=== PATIENT | female | born 1985 | race American Indian/Alaskan Native ===

== ENCOUNTER 2016-12-17 21:39 | Emergency (ER) | payer OTHER ==
[2016-12-17 21:47] VITALS: BP 114/75
[2016-12-17 22:12] LABS: Basophils % (Auto) 1.1 % (0.0-1.8); Eosinophils % (Auto) 5.8 % (0.0-4.3); Hematocrit 37.1 % (30.3-42.9); Hemoglobin 12.2 gm/dl (10.1-14.3); Mean Corpuscular HGB Conc 33 % (30-34); Mean Corpuscular Hemoglobin 28 pg (28-32); Mean Corpuscular Volume 85 fl (79-97); Platelet Count 219 K/mm3 (140-440); Red Blood Count 4.38 M/mm3 (3.65-5.03); Red Cell Distribution Width 14.3 % (13.2-15.2); White Blood Count 5.2 K/mm3 (4.5-11.0)
[2016-12-17 22:29] LABS: Alanine Aminotransferase 9 units/L (7-56); Albumin 4.3 g/dL (3.9-5); Albumin/Globulin Ratio 1.4 %; Alkaline Phosphatase 37 units/L (35-129); Anion Gap 18 mmol/L; BUN/Creatinine Ratio 15; Blood Urea Nitrogen 9 mg/dL (7-17); Calcium 8.8 mg/dL (8.4-10.2); Carbon Dioxide 22 mmol/L (22-30); Glucose 88 mg/dL (65-100); Lipase 32 units/L (13-60); Potassium 3.7 mmol/L (3.6-5.0); Sodium 139 mmol/L (137-145); Total Protein 7.4 g/dL (6.3-8.2)
[2016-12-17 23:00] LABS: Bilirubin,Urine NEG (Negative); Blood,Urine NEG (Negative); Ketones,Urine NEG (Negative); Leukocyte Esterase,Urine NEG (Negative); Mucus,Urine FEW /HPF; Nitrite,Urine NEG (Negative); Protein,Urine <15 mg/dL mg/dL (Negative)
== END 2016-12-18 00:45 | disposition other institution (70) ==
LOC: ED 21:39
DX: M54.9 Dorsalgia, unspecified (principal); Z53.21 Procedure and treatment not carried out due to patient leaving prior to being seen by health care provider
CPT/HCPCS: 36415; 80053; 81001; 81025; 83690; 85025

== ENCOUNTER 2019-08-24 09:09 | Emergency (ER) | payer SELFPAY ==
[2019-08-24 09:16] VITALS: BP 106/71
[2019-08-24] MEDS ORDERED: ONDANSETRON 4 MG/2 ML INJ IM ONE (09:35)
[2019-08-24] MEDS ORDERED: MORPHINE 4 MG/1 ML INJ IM ONE (09:35)
--- NOTE | 2019-08-24 09:38 | Emergency Department Report ---
ED General Adult HPI - General Chief complaint: Urogenital-Female Stated complaint: GROIN PAIN Time Seen by Provider: 08/24/19 09:31 Source: patient Mode of arrival: Ambulatory Limitations: No Limitations - History of Present Illness Initial comments: Patient is 33 years old female with no significant past medical history. Patient presented to the ER stating that she is having suprapubic pain for the last few days. Patient had a Gardner catheter placed in on 08/20 for urine retention. Patient stated that she has an appointment with her urologist today at 12 PM and would like to keep her appointment. Patient denied any fever or chills. No nausea or vomiting. - Related Data Previous Rx's Medication Instructions Recorded Last Taken Type Famotidine [Pepcid] 20 mg PO BID #30 tablet 08/09/15 Unknown Rx HYDROcodone/APAP 7.5-325 [[place] 1 each PO Q8HR PRN #15 tablet 08/09/15 Unknown Rx 7.5/325] Ibuprofen [Motrin 600 MG tab] 600 mg PO Q8H PRN #20 tablet 08/21/19 Unknown Rx Nitrofurantoin [place]/M-Cryst 100 mg PO Q12HR #14 capsule 08/21/19 Unknown Rx [Macrobid CAP] Ondansetron [Zofran Odt] 4 mg PO Q8HR #10 tab.rapdis 08/21/19 Unknown Rx Allergies Allergy/AdvReac Type Severity Reaction Status Date / Time No Known Allergies Allergy Verified 08/06/14 13:18 ED Review of Systems ROS: Stated complaint: GROIN PAIN Other details as noted in HPI Comment: All other systems reviewed and negative Constitutional: denies: chills, fever Respiratory: denies: cough, shortness of breath, SOB with exertion Cardiovascular: denies: chest pain, palpitations Gastrointestinal: abdominal pain. denies: nausea, vomiting, diarrhea, constipation, hematemesis, melena Genitourinary: dysuria ED Past Medical Hx - Past Medical History Previous Medical History?: Yes Hx Headaches / Migraines: Yes - Surgical History Past Surgical History?: Yes Additional Surgical History: neck surgery @ age 4. LAPROSCOPY - Social History Smoking Status: Never Smoker Substance Use Type: None - Medications Home Medications: Home Medications Medication Instructions Recorded Confirmed Last Taken Type Famotidine [Pepcid] 20 mg PO BID #30 tablet 08/09/15 Unknown Rx HYDROcodone/APAP 7.5-325 [[place] 1 each PO Q8HR PRN #15 tablet 08/09/15 Unknown Rx 7.5/325] Ibuprofen [Motrin 600 MG tab] 600 mg PO Q8H PRN #20 tablet 08/21/19 Unknown Rx Nitrofurantoin [place]/M-Cryst 100 mg PO Q12HR #14 capsule 08/21/19 Unknown Rx [Macrobid CAP] Ondansetron [Zofran Odt] 4 mg PO Q8HR #10 tab.rapdis 08/21/19 Unknown Rx ED Physical Exam - General Limitations: No Limitations General appearance: alert, in no apparent distress - Head Head exam: Present: atraumatic, normocephalic, normal inspection - Eye Eye exam: Present: normal appearance - ENT ENT exam: Present: normal exam, normal orophraynx, mucous membranes moist - Neck Neck exam: Present: normal inspection. Absent: tenderness, meningismus - Respiratory Respiratory exam: Present: normal lung sounds bilaterally - Cardiovascular Cardiovascular Exam: Present: regular rate, normal rhythm, normal heart sounds - GI/Abdominal GI/Abdominal exam: Present: soft, normal bowel sounds. Absent: distended, tenderness, guarding, rebound, rigid, organomegaly, mass, bruit, pulsatile mass, hernia - Extremities Exam Extremities exam: Present: normal inspection, full ROM, normal capillary refill. Absent: tenderness, pedal edema, joint swelling, calf tenderness - Back Exam Back exam: Present: normal inspection, full ROM. Absent: CVA tenderness (R), CVA tenderness (L) - Neurological Exam Neurological exam: Present: alert, oriented X3, CN II-XII intact, normal gait, reflexes normal. Absent: motor sensory deficit - Skin Skin exam: Present: warm, intact, normal color ED Course Vital Signs 08/24/19 09:15 Temperature 97.7 F Pulse Rate 112 H Respiratory 16 Rate Blood Pressure 106/71 [Right] ED Medical Decision Making - Medical Decision Making Patient is 33 years old female with no significant past medical history. Patient presented to the ER stating that she is having suprapubic pain for the last few days. Patient had a Gardner catheter placed in on 08/20 for urine retention. Patient stated that she has an appointment with her urologist today at 12 PM and would like to keep her appointment. Patient denied any fever or chills. No nausea or vomiting Gardner catheter adjusted and flushed by the nurse with good flow. Patient received morphine for pain. Patient stated that she is feeling much better. Urine is slightly positive for UTI, patient advised to continue her Macrobid and also advised to follow-up with her urologist appointment in 1 hour. Critical care attestation.: If time is entered above; I have spent that time in minutes in the direct care of this critically ill patient, excluding procedure time. ED Disposition Clinical Impression: Acute urinary retention, Acute cystitis Disposition: - TO HOME OR SELFCARE Is pt being admited?: No Condition: Stable Instructions: Acute Urinary Retention in Women (ED) Referrals: PRIMARY CARE, [Primary Care Provider] - 3-5 Days
[2019-08-24 10:23] LABS: Bacteria,Urine 1+ /HPF (Negative); Bilirubin,Urine NEG (Negative); Blood,Urine NEG (Negative); Color,Urine Yellow (Yellow); Hyaline Casts,Urine 1 /LPF; Mucus,Urine 3+ /HPF; Protein,Urine <15 mg/dL mg/dL (Negative); Urobilinogen,Urine < 2.0 mg/dL (<2.0)
[2019-08-24 10:25] LABS: HCG Qualitative,Urine Negative (Negative)
== END 2019-08-24 11:16 | disposition home or self-care (01) ==
LOC: ED 09:09
DX: N30.00 Acute cystitis without hematuria (principal); R33.8 Other retention of urine; G43.909 Migraine, unspecified, not intractable, without status migrainosus; Z79.899 Other long term (current) drug therapy; Z98.890 Other specified postprocedural states
CPT/HCPCS: 51702; 81001; 81025; 87086; 96372; 99283; J2270; J2405

== ENCOUNTER 2019-08-24 14:29 | Emergency (ER) | payer SELFPAY ==
[2019-08-24 16:00] VITALS: BP 136/78
[2019-08-24] MEDS ORDERED: LIDOCAINE 2% UROJECT 10 ML JELLY UR ONE (17:06)
[2019-08-24] MEDS ORDERED: HYDROcodone/ACETAMINOPHEN 5-325 MG TAB PO ONE (17:07)
--- NOTE | 2019-08-24 17:08 | Emergency Department Report ---
HPI - General Chief Complaint: Urogenital-Female Time Seen by Provider: 08/24/19 16:52 - HPI HPI: Room 34 The patient is a 33-year-old female present with a chief complaint of urethral pain. The patient came to this ED 08/21/2019 for urinary retention. Patient had a placement of a Gardner catheter and had instant relief. Patient discharged home on antibiotics after being found to have a UTI. Patient was given referral to urology and had an appointment today. Patient came to this ED earlier in the day for pain at the Gardner insertion site. The Gardner catheter was flushed by nursing and found to be working appropriately. Patient was sent to the urologist to keep her appointment but was not seen and sent back to the ED. Patient denies nausea vomiting or fever. The patient states she was brought to the ED by another person and is not driving. The patient states she is been compliant with her antibiotic ED Past Medical Hx - Past Medical History Previous Medical History?: Yes Hx Headaches / Migraines: Yes - Surgical History Additional Surgical History: neck surgery @ age 4. LAPROSCOPY - Family History Family history: no significant - Social History Smoking Status: Never Smoker Substance Use Type: None (Denies illicit drug use), Alcohol (Occasional) - Medications Home Medications: Home Medications Medication Instructions Recorded Confirmed Last Taken Type Famotidine [Pepcid] 20 mg PO BID #30 tablet 08/09/15 Unknown Rx HYDROcodone/APAP 7.5-325 [[place] 1 each PO Q8HR PRN #15 tablet 08/09/15 Unknown Rx 7.5/325] Ibuprofen [Motrin 600 MG tab] 600 mg PO Q8H PRN #20 tablet 08/21/19 Unknown Rx Nitrofurantoin [place]/M-Cryst 100 mg PO Q12HR #14 capsule 08/21/19 Unknown Rx [Macrobid CAP] Ondansetron [Zofran Odt] 4 mg PO Q8HR #10 tab.rapdis 08/21/19 Unknown Rx HYDROcodone/APAP 5-325 [[place] 1 - 2 each PO Q6HR PRN #10 tablet 08/24/19 Unknown Rx 5/325] Phenazopyridine [Pyridium] 200 mg PO TID #6 tab 08/24/19 Unknown Rx ED Review of Systems ROS: Stated complaint: CATH PROBLEMS Other details as noted in HPI Constitutional: denies: fever Respiratory: no symptoms reported Endocrine: no symptoms reported Gastrointestinal: denies: nausea, vomiting Physical Exam - Physical Exam Vital Signs: Vital Signs 08/24/19 14:40 Temperature 98.3 F Pulse Rate 114 H Respiratory 18 Rate Blood Pressure 136/78 O2 Sat by Pulse 100 Oximetry Physical Exam: GENERAL: The patient is well-developed well-nourished female lying on stretcher not appearing to be in acute distress. [] HEENT: Normocephalic. Atraumatic. Extraocular motions are intact. Patient has moist mucous membranes. NECK: Supple. Trachea midline CHEST/LUNGS: Clear to auscultation. There is no respiratory distress noted. HEART/CARDIOVASCULAR: Regular. There is no tachycardia. There is no gallop rub or murmur. ABDOMEN: Abdomen is soft, with mild suprapubic discomfort to palpation. There is no rebound or guarding. Patient has normal bowel sounds. There is no abdominal distention. SKIN: There is no rash. There is no edema. There is no diaphoresis. NEURO: The patient is awake, alert, and oriented. The patient is cooperative. The patient has normal speech MUSCULOSKELETAL: There is no CVA tenderness. There is no evidence of acute injury. ED Course Vital Signs 08/24/19 14:40 Temperature 98.3 F Pulse Rate 114 H Respiratory 18 Rate Blood Pressure 136/78 O2 Sat by Pulse 100 Oximetry ED Medical Decision Making - Differential Diagnosis Gardner discomfort, UTI Critical care attestation.: If time is entered above; I have spent that time in minutes in the direct care of this critically ill patient, excluding procedure time. ED Disposition Clinical Impression: Encounter for assessment of Gardner catheter, UTI (urinary tract infection) Disposition: - TO HOME OR SELFCARE Is pt being admited?: No Does the pt Need Aspirin: No Condition: Stable Instructions: Gardner Catheter Placement and Care (ED) Additional Instructions: Return to the emergency department should you develop worsening symptoms, inability to tolerate food or liquids, high fever or any other concerns Prescriptions: HYDROcodone/APAP 5-325 [[place] 5/325] 1 - 2 each PO Q6HR PRN #10 tablet PRN Reason: Pain Phenazopyridine [Pyridium] 200 mg PO TID #6 tab Referrals: KEZIA AHN MD [Staff Physician] - [facility] (Dr. Ahn is a urologist. Please follow-up with him for further evaluation) Time of Disposition: 17:17
== END 2019-08-24 18:02 | disposition home or self-care (01) ==
LOC: ED 14:29
DX: N39.0 Urinary tract infection, site not specified (principal); G43.909 Migraine, unspecified, not intractable, without status migrainosus; Z79.899 Other long term (current) drug therapy; Z76.89 Persons encountering health services in other specified circumstances; Z98.890 Other specified postprocedural states
CPT/HCPCS: 99282

== ENCOUNTER 2019-08-26 16:36 | Inpatient (IN) | payer SELFPAY ==
--- NOTE | 2019-08-26 17:07 | Emergency Department Report ---
ED Abdominal Pain HPI - General Chief Complaint: Abdominal Pain Stated Complaint: ABDOMINAL PAIN PUI?: No Time Seen by Provider: 08/26/19 17:01 Source: patient, EMS Mode of arrival: Stretcher Limitations: No Limitations - History of Present Illness Initial Comments: Patient is a 33-year-old female that presents emergency room with complaints of not being able to urinate. Patient states she has been seen here multiple times for UTI and abdominal pain. Patient states that her pain is a 10 out of 10 and is suprapubic. Patient states the pain is worse with movement and better with rest. Patient states that she was given Pyridium and hydrocodone and antibiotics. Patient states she was not able to afford the antibiotic and only purchased the Pyridium and hydrocodone. Patient did not have a Gardner at this time upon arrival. Patient states it was removed as an outpatient. Patient states she has not urinated for approximately 8 hours. MD Complaint: abdominal pain -: Sudden Location: suprapubic Severity: severe Severity scale (0 -10): 10 Quality: stabbing Consistency: constant Associated Symptoms: denies: nausea, vomiting, diarrhea, fever, chills, constipation, dysuria, hematemesis, hematochezia, melena, hematuria, anorexia, syncope - Related Data Previous Rx's Medication Instructions Recorded Last Taken Type Famotidine [Pepcid] 20 mg PO BID #30 tablet 08/09/15 Unknown Rx HYDROcodone/APAP 7.5-325 [[place] 1 each PO Q8HR PRN #15 tablet 08/09/15 Unknown Rx 7.5/325] Ibuprofen [Motrin 600 MG tab] 600 mg PO Q8H PRN #20 tablet 08/21/19 Unknown Rx Nitrofurantoin [place]/M-Cryst 100 mg PO Q12HR #14 capsule 08/21/19 Unknown Rx [Macrobid CAP] Ondansetron [Zofran Odt] 4 mg PO Q8HR #10 tab.rapdis 08/21/19 Unknown Rx HYDROcodone/APAP 5-325 [[place] 1 - 2 each PO Q6HR PRN #10 tablet 08/24/19 Unknown Rx 5/325] Phenazopyridine [Pyridium] 200 mg PO TID #6 tab 08/24/19 Unknown Rx Allergies Allergy/AdvReac Type Severity Reaction Status Date / Time No Known Allergies Allergy Verified 08/06/14 13:18 ED Review of Systems ROS: Stated complaint: ABDOMINAL PAIN Other details as noted in HPI Constitutional: denies: chills, fever Eyes: denies: eye pain, eye discharge, vision change ENT: denies: ear pain, throat pain Respiratory: denies: cough, shortness of breath, wheezing Cardiovascular: denies: chest pain, palpitations Endocrine: no symptoms reported Gastrointestinal: as per HPI, abdominal pain. denies: nausea, diarrhea Genitourinary: as per HPI, other (Urinary retention). denies: urgency, dysuria, discharge Musculoskeletal: denies: back pain, joint swelling, arthralgia Skin: denies: rash, lesions Neurological: denies: headache, weakness, paresthesias Psychiatric: denies: anxiety, depression Hematological/Lymphatic: denies: easy bleeding, easy bruising ED Past Medical Hx - Past Medical History Previous Medical History?: Yes Hx Headaches / Migraines: Yes - Surgical History Past Surgical History?: Yes Additional Surgical History: neck surgery @ age 4. LAPROSCOPY - Family History Family history: no significant - Social History Smoking Status: Never Smoker Substance Use Type: None - Medications Home Medications: Home Medications Medication Instructions Recorded Confirmed Last Taken Type Famotidine [Pepcid] 20 mg PO BID #30 tablet 08/09/15 Unknown Rx HYDROcodone/APAP 7.5-325 [[place] 1 each PO Q8HR PRN #15 tablet 08/09/15 Unknown Rx 7.5/325] Ibuprofen [Motrin 600 MG tab] 600 mg PO Q8H PRN #20 tablet 08/21/19 Unknown Rx Nitrofurantoin [place]/M-Cryst 100 mg PO Q12HR #14 capsule 08/21/19 Unknown Rx [Macrobid CAP] Ondansetron [Zofran Odt] 4 mg PO Q8HR #10 tab.rapdis 08/21/19 Unknown Rx HYDROcodone/APAP 5-325 [[place] 1 - 2 each PO Q6HR PRN #10 tablet 08/24/19 Unknown Rx 5/325] Phenazopyridine [Pyridium] 200 mg PO TID #6 tab 08/24/19 Unknown Rx ED Physical Exam - General Limitations: No Limitations General appearance: alert, in no apparent distress - Head Head exam: Present: atraumatic, normocephalic - Eye Eye exam: Present: normal appearance - ENT ENT exam: Present: mucous membranes moist - Neck Neck exam: Present: normal inspection - Respiratory Respiratory exam: Present: normal lung sounds bilaterally. Absent: respiratory distress - Cardiovascular Cardiovascular Exam: Present: regular rate, normal rhythm. Absent: systolic murmur, diastolic murmur, rubs, gallop - GI/Abdominal GI/Abdominal exam: Present: soft, tenderness (Suprapubic tenderness), normal bowel sounds - Rectal Rectal exam: Present: normal inspection, normal rectal tone - External exam: Present: normal external exam Speculum exam: Present: erythema, vaginal discharge, cervical discharge Bi-manual exam: Present: cervical motion tendernes, uterine tenderness - Extremities Exam Extremities exam: Present: normal inspection - Back Exam Back exam: Present: normal inspection - Neurological Exam Neurological exam: Present: alert, oriented X3 - Psychiatric Psychiatric exam: Present: normal affect, normal mood - Skin Skin exam: Present: warm, dry, intact, normal color. Absent: rash ED Course Vital Signs 08/26/19 08/26/19 08/26/19 16:56 17:06 17:35 Temperature 98.8 F Pulse Rate 115 H 95 H Respiratory 18 16 Rate Blood Pressure 130/90 105/65 [Left] O2 Sat by Pulse 100 99 Oximetry 08/26/19 08/27/19 23:35 01:35 Temperature 97.8 F Pulse Rate 99 H 100 H Respiratory 18 18 Rate Blood Pressure 112/72 110/66 [Left] O2 Sat by Pulse 99 97 Oximetry - Reevaluation(s) Reevaluation #1: Initial evaluation done. Patient had a Gardner placed by the nurse and her sympto ms are improving but she is still having suprapubic pain. Patient is crying. 08/26/19 17:11 Reevaluation #2: Patient states her pain is better. Patient's Gardner is still in place. Patient will have pelvic exam. Patient agrees to pelvic exam. 08/26/19 23:22 Reevaluation #3: Pelvic exam done with Amber Teran in the room. Pelvic exam shows cervical motion tenderness. [employer] will be consulted. 08/26/19 23:58 - Consultations Consultation #1: [employer] paged 08/26/19 23:[address] Mejia, CINDER PITMAN. wants the patient to be admitted to the mother-baby and be started on clindamycin 603 times a day IV, doxycycline 100 mg IV twice daily and ceftriaxone 2 g IV every 24 hours. 08/27/19 00:44 ED Medical Decision Making - Lab Data Result diagrams: 08/26/19 19:03 08/26/19 19:03 - Radiology Data Radiology results: report reviewed CT ABDOMEN AND PELVIS WITHOUT IV CONTRAST INDICATION: Pt complains of dysuria and suprapubic abd pain. Hx of U.T.I.'s. COMPARISON: None available. TECHNIQUE: All CT scans at this facility use dose modulation, automated exposure control, iterative reconstruction or weight based dosing, when appropriate, to reduce radiation dose to as low as reasonably achievable. FINDINGS: Lung Bases: No significant abnormality. Skeletal System: No acute abnormality. ABDOMEN: Liver: No significant abnormality. Gallbladder: There are a few tiny stones in the gallbladder. The gallbladder is otherwise unremarkable. Bile Ducts: No significant abnormality. Pancreas: No significant abnormality. Spleen: No significant abnormality. Adrenals: No significant abnormality. Right Kidney: No significant abnormality. Left Kidney: No significant abnormality. Upper GI tract: No significant abnormality. Lymph Nodes: No significant adenopathy. Aorta: No significant abnormality. Additional Findings: No significant abnormality. PELVIS: Colon: No acute abnormality. Urinary Bladder and Distal Ureters: Gas in the bladder may be related to Gardner catheter placement. There is mild bladder wall thickening and perivesical stranding. Appendix: No significant abnormality. Lymph Nodes: No significant adenopathy. Additional Findings: There is a low density collection between the bladder and the vagina. This measures 4.2 x 4.4 cm on axial series 2 image 157 and extends craniocaudally for approximately 5 cm on sagittal image 77. There is trace free fluid in the pelvis. IMPRESSION: 1. Low density collection between the vagina and bladder/urethra, measurements as above. This is nonspecific but could be a urethral diverticulum or other congenital cyst. I cannot exclude infection within this. Urologic/gynecologic consultation should be considered. 2. Bladder wall thickening is suggestive of cystitis. Gas in the bladder lumen may be related to catheter placement. 3. Minimal cholelithiasis. - Medical Decision Making Patient is a 33-year-old female that presents emergency room with complaints of lower abdominal pain, urinary retention and nausea and vomiting. Patient had a Gardner placed immediately upon arrival. Patient has had a Gardner multiple times over the past few weeks. Patient was prescribed Macrobid for UTI but did not start it. Patient also given Pyridium and [place] and the patient was taking this. After the Gardner was placed, the patient had large volume output of urine. Patient also initially had a decrease in her pain. Patient given Dilaudid for her pain. Patient initially was given Rocephin 2 g for a UTI. Patient CT was done. Patient CT shows a pelvic density and free fluid and findings consistent with acute cystitis. Patient had a pelvic exam after the CT results came back. Patient's pelvic exam shows cervical motion tenderness and copious amounts of vaginal and cervical discharge. I then consulted CINDER PITMAN and CINDER PITMAN recommend admission to mother-baby and multiple antibiotics to cover PID. Patient placed on Rocephin, doxy and Clinda and given fluids of normal saline. Patient also placed n.p.o. for possible intervention in the morning. Patient admitted to mother-baby. - Differential Diagnosis UTI, acute cystitis, gastroenteritis, kidney stone, bladder stone Critical Care Time: Yes Critical care time in (mins) excluding proc time.: 35 Critical care attestation.: If time is entered above; I have spent that time in minutes in the direct care of this critically ill patient, excluding procedure time. Critical Care Time: 35 minutes ED Disposition Clinical Impression: Acute urinary retention, PID (acute pelvic inflammatory disease), Vaginal discharge, Free fluid in pelvis UTI (urinary tract infection) Qualifiers: Urinary tract infection type: acute cystitis Hematuria presence: with hematuria Qualified Code(s): N30.01 - Acute cystitis with hematuria Abdominal pain Qualifiers: Abdominal location: lower abdomen, unspecified Qualified Code(s): R10.30 - Lower abdominal pain, unspecified Disposition: OP ADMIT IP TO THIS HOSP Is pt being admited?: Yes Does the pt Need Aspirin: No Condition: Critical Time of Disposition: 00:45
[2019-08-26 17:51] LABS: Bilirubin,Urine NEG (Negative); Blood,Urine NEG (Negative); Color,Urine Amber (Yellow); Protein,Urine <15 mg/dL mg/dL (Negative)
[2019-08-26 19:29] LABS: Hematocrit 38.6 % (30.3-42.9); Hemoglobin 12.2 gm/dl (10.1-14.3); Mean Corpuscular HGB Conc 32 % (30-34); Mean Corpuscular Volume 88 fl (79-97); Platelet Count 321 K/mm3 (140-440); Red Blood Count 4.38 M/mm3 (3.65-5.03); Red Cell Distribution Width 13.8 % (13.2-15.2)
[2019-08-26 19:37] LABS: Alanine Aminotransferase 8 units/L (7-56); Albumin 4.3 g/dL (3.9-5); BUN/Creatinine Ratio 10; Blood Urea Nitrogen 6 mg/dL (7-17); Calcium 9.5 mg/dL (8.4-10.2); Hemolysis Index 80
[2019-08-26] MEDS ORDERED: cefTRIAXone/NS 2 GM/100 ML 2 GM/100 ML BAG IV ONE (21:34)
[2019-08-26] MEDS ORDERED: HYDROmorphone 1 MG/1 ML INJ IV ONE (21:34)
[2019-08-26] MEDS ORDERED: NS IV ONE (21:47)
[2019-08-26] MEDS ORDERED: CEFTRIAXONE IV ONE (21:47)
[2019-08-26 22:13] LABS: HCG Qualitative,Urine Negative (Negative)
--- NOTE | 2019-08-26 23:01 | Cat Scan Report ---
CT ABDOMEN AND PELVIS WITHOUT IV CONTRAST INDICATION: Pt complains of dysuria and suprapubic abd pain. Hx of U.T.I.'s. COMPARISON: None available. TECHNIQUE: All CT scans at this facility use dose modulation, automated exposure control, iterative reconstructi on or weight based dosing, when appropriate, to reduce radiation dose to as low as reasonably achieva ble. FINDINGS: Lung Bases: No significant abnormality. Skeletal System: No acute abnormality. ABDOMEN: Liver: No significant abnormality. Gallbladder: There are a few tiny stones in the gallbladder. The gallbladder is otherwise unremarkabl e. Bile Ducts: No significant abnormality. Pancreas: No significant abnormality. Spleen: No significant abnormality. Adrenals: No significant abnormality. Right Kidney: No significant abnormality. Left Kidney: No significant abnormality. Upper GI tract: No significant abnormality. Lymph Nodes: No significant adenopathy. Aorta: No significant abnormality. Additional Findings: No significant abnormality. PELVIS: Colon: No acute abnormality. Urinary Bladder and Distal Ureters: Gas in the bladder may be related to Gardner catheter placement. Th ere is mild bladder wall thickening and perivesical stranding. Appendix: No significant abnormality. Lymph Nodes: No significant adenopathy. Additional Findings: There is a low density collection between the bladder and the vagina. This measu res 4.2 x 4.4 cm on axial series 2 image 157 and extends craniocaudally for approximately 5 cm on sag ittal image 77. There is trace free fluid in the pelvis. IMPRESSION: 1. Low density collection between the vagina and bladder/urethra, measurements as above. This is non specific but could be a urethral diverticulum or other congenital cyst. I cannot exclude infection wi thin this. Urologic/gynecologic consultation should be considered. 2. Bladder wall thickening is suggestive of cystitis. Gas in the bladder lumen may be related to cat heter placement. 3. Minimal cholelithiasis. Signer Name: Isauro Black MD Signed: 08/26/2019 10:57 PM Workstation Name: [id number]
[2019-08-27] MEDS ORDERED: DOXYCYCLINE HYCLATE 100 MG in SODIUM CHLORIDE 0.9% 250ML 250 ML IV ONE (00:42)
[2019-08-27] MEDS ORDERED: CLINDAMYCIN 600 MG/50 mL 600 MG/50 ML BAG IV ONE ×2 (00:42→01:25)
[2019-08-27] MEDS ORDERED: SODIUM CHLORIDE 0.9% 1000 ML 1,000 ML IV ONE ×2 (00:43→00:50)
[2019-08-27] MEDS ORDERED: HYDROmorphone 1 MG/1 ML INJ IV ONE ×2 (00:44→00:50)
[2019-08-27] MEDS ORDERED: HYDROmorphone 1 MG/1 ML INJ ONE (01:25)
[2019-08-27] MEDS ORDERED: SODIUM CHLORIDE 0.9% 1000 ML 1,000 ML ONE (01:25)
[2019-08-27] MEDS: HYDROmorphone 1 MG/1 ML INJ IV PRN ×4 (03:59→20:41)
[2019-08-27] MEDS: SODIUM CHLORIDE 0.9% 1000 ML 1,000 ML IV SCH ×2 (04:00→20:41)
[2019-08-27] MEDS ORDERED: CLINDAMYCIN 600 MG/50 mL 600 MG/50 ML BAG IV SCH (06:00)
[2019-08-27 06:24] LABS: Basophils % (Auto) 0.5 % (0.0-1.8); Eosinophils # (Auto) 0.1 K/mm3 (0.0-0.4); Eosinophils % (Auto) 1.5 % (0.0-4.3); Hematocrit 35.9 % (30.3-42.9); Hemoglobin 11.8 gm/dl (10.1-14.3); Lymphocytes # (Auto) 1.8 K/mm3 (1.2-5.4); Lymphocytes % (Auto) 23.1 % (13.4-35.0); Mean Corpuscular HGB Conc 33 % (30-34); Mean Corpuscular Volume 86 fl (79-97); Monocytes % (Auto) 12.8 % (0.0-7.3); Platelet Count 325 K/mm3 (140-440); Red Blood Count 4.19 M/mm3 (3.65-5.03); Red Cell Distribution Width 13.7 % (13.2-15.2)
[2019-08-27 06:33] LABS: Alanine Aminotransferase 6 units/L (7-56); Albumin 3.9 g/dL (3.9-5); BUN/Creatinine Ratio 8; Blood Urea Nitrogen 5 mg/dL (7-17); Calcium 8.9 mg/dL (8.4-10.2); Hemolysis Index 12
[2019-08-27] MEDS: CLINDAMYCIN 600 MG/50 mL 600 MG/50 ML BAG IV SCH ×2 (08:06→16:27)
[2019-08-27] MEDS ORDERED: ACETAMINOPHEN 325 MG TAB PO PRN (09:16)
--- NOTE | 2019-08-27 09:47 | History and Physical Report ---
History of Present Illness Date of examination: 08/27/19 Date of admission: 08/27/19 00:45 Chief complaint: pelvic pain History of present illness: Admitted through the er with vag discharge, cervical motion tenderness, pelvic pain and CT findings of free pelvic fluid. Past History Past Medical History: no pertinent history Medications and Allergies Allergies Allergy/AdvReac Type Severity Reaction Status Date / Time No Known Allergies Allergy Verified 08/06/14 13:18 Home Medications Medication Instructions Recorded Confirmed Last Taken Type Famotidine [Pepcid] 20 mg PO BID #30 tablet 08/09/15 Unknown Rx HYDROcodone/APAP 7.5-325 [[place] 1 each PO Q8HR PRN #15 tablet 08/09/15 Unknown Rx 7.5/325] Ibuprofen [Motrin 600 MG tab] 600 mg PO Q8H PRN #20 tablet 08/21/19 Unknown Rx Nitrofurantoin [place]/M-Cryst 100 mg PO Q12HR #14 capsule 08/21/19 Unknown Rx [Macrobid CAP] Ondansetron [Zofran Odt] 4 mg PO Q8HR #10 tab.rapdis 08/21/19 Unknown Rx HYDROcodone/APAP 5-325 [[place] 1 - 2 each PO Q6HR PRN #10 tablet 08/24/19 Unknown Rx 5/325] Phenazopyridine [Pyridium] 200 mg PO TID #6 tab 08/24/19 Unknown Rx Active Meds: Active Medications Acetaminophen (Tylenol) 650 mg PO Q6H PRN PRN Reason: Pain, Mild (1-3) Hydromorphone HCl (Dilaudid) 1 mg IV Q4H PRN PRN Reason: Pain , Severe (7-10) Last Admin: 08/27/19 08:01 Dose: 1 mg Documented by: Ceftriaxone Sodium (Rocephin/Ns 2 Gm/100 Ml) 2 gm in 100 mls @ 200 mls/hr IV Q24HR [facility]; Protocol Doxycycline Hyclate 100 mg/ (Sodium Chloride) 250 mls @ 250 mls/hr IV Q12HR [facility]; Protocol Sodium Chloride (Nacl 0.9% 1000 Ml) 1,000 mls @ 125 mls/hr IV DIRECT [facility]ATHI Last Admin: 08/27/19 04:00 Dose: 125 mls/hr Documented by: Clindamycin HCl (Cleocin 600 Mg/50 Ml) 600 mg in 50 mls @ 100 mls/hr IV Q8H [facility]; Protocol Last Admin: 08/27/19 08:06 Dose: 100 mls/hr Documented by: Review of Systems All systems: negative - Vital Signs Vital signs: Vital Signs Pulse Resp BP Pulse Ox 115 H 18 130/90 100 08/26/19 16:56 08/26/19 16:56 08/26/19 16:56 08/26/19 16:56 Temp Pulse Resp BP Pulse Ox 98.2 F 86 18 113/70 98 08/27/19 08:33 08/27/19 08:33 08/27/19 08:33 08/27/19 08:33 08/27/19 08:33 - Physical Exam Breasts: Positive: deferred Lungs: Positive: Normal air movement Abdomen: Positive: normal appearance. Negative: distention, tenderness, guarding, rigidity Cervix: Positive: other (Bimanual exam was deferred due patient having been given dilaudid) Extremities: Positive: normal Deep Tendon Reflex Grade: Normal +2 Results Result Diagrams: 08/27/19 05:53 08/27/19 05:53 Abnormal lab results 08/26/19 08/27/19 08/27/19 Range/Units 19:03 05:53 05:53 [place] % (Auto) 12.8 H (0.0-7.3) % [place] # 1.0 H (0.0-0.8) K/mm3 BUN 6 L 5 L (7-17) mg/dL Creatinine 0.6 L 0.6 L (0.7-1.2) mg/dL Glucose 101 H (65-100) mg/dL ALT 6 L (7-56) units/L All other labs normal. Assessment and Plan - Patient Problems (1) PID (acute pelvic inflammatory disease) Current Visit: Yes Status: Acute Plan to address problem: Will keep in house for antibiotics.
[2019-08-27] MEDS: cefTRIAXone/NS 2 GM/100 ML 2 GM/100 ML BAG IV SCH (10:25)
[2019-08-27] MEDS: DOXYCYCLINE HYCLATE 100 MG in SODIUM CHLORIDE 0.9% 250ML 250 ML IV SCH (13:38)
[2019-08-28] MEDS: CLINDAMYCIN 600 MG/50 mL 600 MG/50 ML BAG IV SCH (01:23)
[2019-08-28] MEDS: DOXYCYCLINE HYCLATE 100 MG in SODIUM CHLORIDE 0.9% 250ML 250 ML IV SCH (02:24)
[2019-08-28 08:54] VITALS: BP 112/73
[2019-08-28] MEDS ORDERED: METOCLOPRAMIDE 10 MG TAB PO SCH (09:00)
[2019-08-28] MEDS: cefTRIAXone/NS 2 GM/100 ML 2 GM/100 ML BAG IV SCH (09:42)
[2019-08-28] MEDS ORDERED: SODIUM BICARBONATE 650 MG TAB PO SCH (10:00)
--- NOTE | 2019-08-28 11:21 | Progress Note ---
Assessment and Plan UTI/Urinary Retention Pelvic Pain Plan: afebrile no leukocytosis pain controlled tolerting PO plan to d/c home with PO medsx10 days Follow up in the outpatient setting no Urology in-house, plan for outpatient consult Walter Whalen MD Subjective - Subjective Date of service: 08/28/19 Principal diagnosis: pelvic pain(presumptive PID),urinary reterntion(resolved) Patient reports: appetite normal, voiding normally, pain well controlled, ambulating normally Objective - Vital Signs Latest vital signs: Vital Signs Temp Pulse Resp Resp BP BP Pulse Ox 08/28/19 08:59 23 100 08/28/19 08:36 98.4 F 83 16 112/73 95 08/28/19 03:55 98.3 F 92 H 16 126/83 99 08/28/19 00:44 97.9 F 70 16 102/60 96 08/27/19 21:11 18 08/27/19 20:50 98.2 F 78 16 115/71 98 08/27/19 20:41 18 08/27/19 20:00 18 08/27/19 16:00 97.9 F 80 18 108/63 100 08/27/19 12:20 98.4 F 90 18 115/75 100 Intake and Output 08/27/19 08/28/19 08/28/19 23:59 07:59 15:59 Intake Total 410 240 120 Output Total 700 200 Balance -290 240 -80 Intake: IV 50 CLEOCIN 600 MG/50 mL 600 50 mg In 50 ml @ 100 mls/hr IV Q8H [facility] Rx#:[id number] Oral 240 120 Intake, Free Water 120 240 Output: Urine 700 200 Indwelling Catheter 500 Void 200 200 Other: Total, Intake Amount 240 120 Total, Output Amount 200 200 Voiding Method Toilet # Voids Void 1 1 1 - Exam Breasts: Present: deferred Cardiovascular: Present: Regular rate Lungs: Present: Clear to auscultation Abdomen: Present: normal appearance, normal bowel sounds Uterus: Present: normal Extremities: Present: normal Deep Tendon Reflex Grade: Normal +2
--- NOTE | 2019-08-28 11:30 | Discharge Summary ---
Providers - Providers Date of Admission: 08/27/19 00:45 Date of discharge: 08/28/19 Attending physician: IAN BAILEY MD Primary care physician: CORTEZ RODRIGUEZ MD Hospitalization Reason for admission: other (PID/Urinary retention) Condition at discharge: Critical Disposition: DC-01 TO HOME OR SELFCARE Plan - Discharge Medications Prescriptions: metroNIDAZOLE [Flagyl] 500 mg PO Q12HR 10 Days tab DOXYCYCLINE Hyclate [Vibramycin CAP] 100 mg PO Q12HR 10 Days capsule - Provider Discharge Summary Activity: routine Diet: routine Additional instructions: [] Smoking cessation referral if applicable(refer to patient education folder for contact #) [] Refer to [facility]'s [facility] Booklet Call your doctor immediately for: * Fever > 100.5 * Heavy vaginal bleeding ( >1 pad per hour) * Severe persistent headache * Shortness of breath * Reddened, hot, painful area to leg or breast * Drainage or odor from incision. * Keep incision clean and dry at all times and follow doctor's instructions regarding bathing/showering - Follow up plan Follow up: CORTEZ RODRIGUEZ MD [Primary Care Provider] - 3-5 Days KAI SANCHEZ MD [Staff Physician] - 7 Days
== END 2019-08-28 12:38 | disposition home or self-care (01) | DRG 758 ==
LOC: ED 16:36 → OB 08-27 00:45
PROVIDERS: ADMIT Obstetrics & Gynecology; ATTEND Obstetrics & Gynecology
DX: N73.0 Acute parametritis and pelvic cellulitis (principal); N30.01 Acute cystitis with hematuria; N89.8 Other specified noninflammatory disorders of vagina; R33.8 Other retention of urine; G43.909 Migraine, unspecified, not intractable, without status migrainosus
CPT/HCPCS: 36415; 74176; 80053; 81001; 81025; 85025; 85027; 87040; 87086; 87210; 87591; G0378; J0696; J1170; J7030; J7050

== ENCOUNTER 2020-03-04 09:55 | Emergency (ER) | payer SELFPAY ==
[2020-03-04] MEDS ORDERED: SODIUM CHLORIDE 0.9% 1000 ML 1,000 ML IV ONE (10:39)
--- NOTE | 2020-03-04 10:39 | Emergency Department Report ---
ED General Adult HPI - General Chief complaint: Arrhythmia/Palpitations Stated complaint: CHEST PAIN Time Seen by Provider: 03/04/20 10:20 Source: patient Mode of arrival: Wheelchair Limitations: No Limitations - History of Present Illness Initial comments: Patient is a 34-year-old female presents emergency room with complaints of pleuritic chest pain that began yesterday. She has associated palpitations, shortness of breath, cramping/tingling in her legs. She denies any leg swelling, vomiting, cough, hemoptysis, fever, nausea. She states that yesterday she went to a [email or web address] and told them that she was having some difficulty sleeping and she took a gummy candy and then began experiencing palpitations. She states that she went to another hospital yesterday but does not know the name of it and had an EKG performed which she reports was normal and then she was discharged home per pt. She states the palpitations have been improving but she is now experiencing pleuritic chest pain and shortness of breath. Patient states that she had a [place] butt lift cosmetic surgery performed in [place] 3 months ago. She denies any known sick contacts. No past medical history. No allergies medications. She endorses occasional alcohol use. She denies any other drug use. She denies any tobacco use. no hormone use, no hx of cancer. - Related Data Previous Rx's Medication Instructions Recorded Last Taken Type Famotidine [Pepcid] 20 mg PO BID #30 tablet 08/09/15 Unknown Rx HYDROcodone/APAP 7.5-325 [[place] 1 each PO Q8HR PRN #15 tablet 08/09/15 Unknown Rx 7.5/325] Ibuprofen [Motrin 600 MG tab] 600 mg PO Q8H PRN #20 tablet 08/21/19 Unknown Rx Nitrofurantoin [place]/M-Cryst 100 mg PO Q12HR #14 capsule 08/21/19 Unknown Rx [Macrobid CAP] Ondansetron [Zofran Odt] 4 mg PO Q8HR #10 tab.rapdis 08/21/19 Unknown Rx HYDROcodone/APAP 5-325 [[place]ster 1 - 2 each PO Q6HR PRN #10 tablet 08/24/19 Unknown Rx 5/325] Phenazopyridine [Pyridium] 200 mg PO TID #6 tab 08/24/19 Unknown Rx DOXYCYCLINE Hyclate [Vibramycin 100 mg PO Q12HR 10 Days capsule 08/28/19 Unknown Rx CAP] metroNIDAZOLE [Flagyl] 500 mg PO Q12HR 10 Days tab 08/28/19 Unknown Rx Naproxen [EC-Naprosyn] 500 mg PO BID PRN #14 tablet. 03/04/20 Unknown Rx Allergies Allergy/AdvReac Type Severity Reaction Status Date / Time No Known Allergies Allergy Verified 08/06/14 13:18 ED Review of Systems ROS: Stated complaint: CHEST PAIN Other details as noted in HPI Comment: All other systems reviewed and negative ED Past Medical Hx - Past Medical History Previous Medical History?: Yes Hx Headaches / Migraines: Yes - Surgical History Past Surgical History?: Yes Additional Surgical History: neck surgery @ age 4. LAPROSCOPY - Social History Smoking Status: Never Smoker Substance Use Type: None - Medications Home Medications: Home Medications Medication Instructions Recorded Confirmed Last Taken Type Famotidine [Pepcid] 20 mg PO BID #30 tablet 08/09/15 08/28/19 Unknown Rx HYDROcodone/APAP 7.5-325 [[place] 1 each PO Q8HR PRN #15 tablet 08/09/15 08/28/19 Unknown Rx 7.5/325] Ibuprofen [Motrin 600 MG tab] 600 mg PO Q8H PRN #20 tablet 08/21/19 08/28/19 Unknown Rx Nitrofurantoin [place]/M-Cryst 100 mg PO Q12HR #14 capsule 08/21/19 08/28/19 Unknown Rx [Macrobid CAP] Ondansetron [Zofran Odt] 4 mg PO Q8HR #10 tab.rapdis 08/21/19 08/28/19 Unknown Rx HYDROcodone/APAP 5-325 [[place]ster 1 - 2 each PO Q6HR PRN #10 tablet 08/24/19 08/28/19 Unknown Rx 5/325] Phenazopyridine [Pyridium] 200 mg PO TID #6 tab 08/24/19 08/28/19 Unknown Rx DOXYCYCLINE Hyclate [Vibramycin 100 mg PO Q12HR 10 Days capsule 08/28/19 Unknown Rx CAP] metroNIDAZOLE [Flagyl] 500 mg PO Q12HR 10 Days tab 08/28/19 Unknown Rx Naproxen [EC-Naprosyn] 500 mg PO BID PRN #14 tablet. 03/04/20 Unknown Rx ED Physical Exam - General Limitations: No Limitations General appearance: alert, in no apparent distress - Head Head exam: Present: atraumatic, normocephalic - Eye Eye exam: Present: normal appearance - ENT ENT exam: Present: mucous membranes moist - Respiratory Respiratory exam: Present: normal lung sounds bilaterally. Absent: respiratory distress, wheezes, rales, rhonchi, stridor, chest wall tenderness, accessory muscle use, decreased breath sounds, prolonged expiratory - Cardiovascular Cardiovascular Exam: Present: regular rate, normal rhythm, normal heart sounds. Absent: systolic murmur, diastolic murmur, rubs, gallop - Neurological Exam Neurological exam: Present: alert, oriented X3 - Psychiatric Psychiatric exam: Present: normal affect, normal mood - Skin Skin exam: Present: warm, dry, intact ED Course Vital Signs 03/04/20 03/04/20 09:56 19:20 Temperature 97.6 F Pulse Rate 90 90 Respiratory 18 16 Rate Blood Pressure 119/68 Blood Pressure 117/81 [Left] O2 Sat by Pulse 98 99 Oximetry ED Medical Decision Making - Lab Data Result diagrams: 03/04/20 10:38 03/04/20 10:38 Lab Results 03/04/20 03/04/20 03/04/20 Range/Units 10:38 10:38 10:38 WBC 4.3 L (4.5-11.0) K/mm3 RBC 4.43 (3.65-5.03) M/mm3 Hgb 12.9 (10.1-14.3) gm/dl Hct 38.2 (30.3-42.9) % MCV 86 (79-97) fl MCH 29 (28-32) pg MCHC 34 (30-34) % RDW 14.2 (13.2-15.2) % Plt Count 254 (140-440) K/mm3 Lymph % (Auto) 34.9 (13.4-35.0) % [place] % (Auto) 10.3 H (0.0-7.3) % Eos % (Auto) 1.9 (0.0-4.3) % Baso % (Auto) 0.6 (0.0-1.8) % Lymph # (Auto) 1.5 (1.2-5.4) K/mm3 [place] # (Auto) 0.4 (0.0-0.8) K/mm3 Eos # (Auto) 0.1 (0.0-0.4) K/mm3 Baso # (Auto) 0.0 (0.0-0.1) K/mm3 Seg Neutrophils % 52.3 (40.0-70.0) % Seg Neutrophils # 2.2 (1.8-7.7) K/mm3 D-Dimer (0-234) ng/mlDDU Sodium 136 L (137-145) mmol/L Potassium 3.5 L (3.6-5.0) mmol/L Chloride 101.8 (98-107) mmol/L Carbon Dioxide 27 (22-30) mmol/L Anion Gap 11 mmol/L BUN 13 (7-17) mg/dL Creatinine 0.6 (0.6-1.2) mg/dL Estimated GFR > 60 ml/min BUN/Creatinine Ratio 22 % Glucose 77 (65-100) mg/dL Calcium 9.2 (8.4-10.2) mg/dL Magnesium (1.7-2.3) mg/dL Total Bilirubin 0.30 (0.1-1.2) mg/dL AST 18 (5-40) units/L ALT 10 (7-56) units/L Alkaline Phosphatase 41 (35-129) units/L Total Creatine Kinase (30-135) units/L Troponin T < 0.010 (0.00-0.029) ng/mL Total Protein 7.5 (6.3-8.2) g/dL Albumin 4.1 (3.9-5) g/dL Albumin/Globulin Ratio 1.2 % Lipase (13-60) units/L HCG, Qual (Negative) Urine Color (Yellow) Urine Turbidity (Clear) Urine pH (5.0-7.0) Ur Specific [place] (1.003-1.030) Urine Protein (Negative) mg/dL Urine Glucose (UA) (Negative) mg/dL Urine Ketones (Negative) mg/dL Urine Blood (Negative) Urine Nitrite (Negative) Urine Bilirubin (Negative) Urine Urobilinogen (<2.0) mg/dL Ur Leukocyte Esterase (Negative) Urine WBC (Auto) (0.0-6.0) /HPF Urine RBC (Auto) (0.0-6.0) /HPF Salicylates < 0.3 L (2.8-20.0) mg/dL Urine Opiates Screen Urine Methadone Screen Acetaminophen (10.0-30.0) ug/mL Ur Barbiturates Screen Ur Phencyclidine Scrn Ur Amphetamines Screen U Benzodiazepines Scrn Urine Cocaine Screen U Marijuana (THC) Screen Drugs of Abuse Note Plasma/Serum Alcohol (0-0.07) % 03/04/20 03/04/20 03/04/20 Range/Units 10:38 10:38 10:38 WBC (4.5-11.0) K/mm3 RBC (3.65-5.03) M/mm3 Hgb (10.1-14.3) gm/dl Hct (30.3-42.9) % MCV (79-97) fl MCH (28-32) pg MCHC (30-34) % RDW (13.2-15.2) % Plt Count (140-440) K/mm3 Lymph % (Auto) (13.4-35.0) % [place] % (Auto) (0.0-7.3) % Eos % (Auto) (0.0-4.3) % Baso % (Auto) (0.0-1.8) % Lymph # (Auto) (1.2-5.4) K/mm3 [place] # (Auto) (0.0-0.8) K/mm3 Eos # (Auto) (0.0-0.4) K/mm3 Baso # (Auto) (0.0-0.1) K/mm3 Seg Neutrophils % (40.0-70.0) % Seg Neutrophils # (1.8-7.7) K/mm3 D-Dimer 641.97 H (0-234) ng/mlDDU Sodium (137-145) mmol/L Potassium (3.6-5.0) mmol/L Chloride (98-107) mmol/L Carbon Dioxide (22-30) mmol/L Anion Gap mmol/L BUN (7-17) mg/dL Creatinine (0.6-1.2) mg/dL Estimated GFR ml/min BUN/Creatinine Ratio % Glucose (65-100) mg/dL Calcium (8.4-10.2) mg/dL Magnesium (1.7-2.3) mg/dL Total Bilirubin (0.1-1.2) mg/dL AST (5-40) units/L ALT (7-56) units/L Alkaline Phosphatase (35-129) units/L Total Creatine Kinase (30-135) units/L Troponin T (0.00-0.029) ng/mL Total Protein (6.3-8.2) g/dL Albumin (3.9-5) g/dL Albumin/Globulin Ratio % Lipase (13-60) units/L HCG, Qual (Negative) Urine Color (Yellow) Urine Turbidity (Clear) Urine pH (5.0-7.0) Ur Specific [place] (1.003-1.030) Urine Protein (Negative) mg/dL Urine Glucose (UA) (Negative) mg/dL Urine Ketones (Negative) mg/dL Urine Blood (Negative) Urine Nitrite (Negative) Urine Bilirubin (Negative) Urine Urobilinogen (<2.0) mg/dL Ur Leukocyte Esterase (Negative) Urine WBC (Auto) (0.0-6.0) /HPF Urine RBC (Auto) (0.0-6.0) /HPF Salicylates (2.8-20.0) mg/dL Urine Opiates Screen Urine Methadone Screen Acetaminophen 5.0 L (10.0-30.0) ug/mL Ur Barbiturates Screen Ur Phencyclidine Scrn Ur Amphetamines Screen U Benzodiazepines Scrn Urine Cocaine Screen U Marijuana (THC) Screen Drugs of Abuse Note Plasma/Serum Alcohol < 0.01 (0-0.07) % 03/04/20 03/04/20 03/04/20 Range/Units 10:38 10:38 14:35 WBC (4.5-11.0) K/mm3 RBC (3.65-5.03) M/mm3 Hgb (10.1-14.3) gm/dl Hct (30.3-42.9) % MCV (79-97) fl MCH (28-32) pg MCHC (30-34) % RDW (13.2-15.2) % Plt Count (140-440) K/mm3 Lymph % (Auto) (13.4-35.0) % [place] % (Auto) (0.0-7.3) % Eos % (Auto) (0.0-4.3) % Baso % (Auto) (0.0-1.8) % Lymph # (Auto) (1.2-5.4) K/mm3 [place] # (Auto) (0.0-0.8) K/mm3 Eos # (Auto) (0.0-0.4) K/mm3 Baso # (Auto) (0.0-0.1) K/mm3 Seg Neutrophils % (40.0-70.0) % Seg Neutrophils # (1.8-7.7) K/mm3 D-Dimer (0-234) ng/mlDDU Sodium (137-145) mmol/L Potassium (3.6-5.0) mmol/L Chloride (98-107) mmol/L Carbon Dioxide (22-30) mmol/L Anion Gap mmol/L BUN (7-17) mg/dL Creatinine (0.6-1.2) mg/dL Estimated GFR ml/min BUN/Creatinine Ratio % Glucose (65-100) mg/dL Calcium (8.4-10.2) mg/dL Magnesium 1.90 (1.7-2.3) mg/dL Total Bilirubin (0.1-1.2) mg/dL AST (5-40) units/L ALT (7-56) units/L Alkaline Phosphatase (35-129) units/L Total Creatine Kinase 191 H (30-135) units/L Troponin T < 0.010 (0.00-0.029) ng/mL Total Protein (6.3-8.2) g/dL Albumin (3.9-5) g/dL Albumin/Globulin Ratio % Lipase 26 (13-60) units/L HCG, Qual Negative (Negative) Urine Color (Yellow) Urine Turbidity (Clear) Urine pH (5.0-7.0) Ur Specific [place] (1.003-1.030) Urine Protein (Negative) mg/dL Urine Glucose (UA) (Negative) mg/dL Urine Ketones (Negative) mg/dL Urine Blood (Negative) Urine Nitrite (Negative) Urine Bilirubin (Negative) Urine Urobilinogen (<2.0) mg/dL Ur Leukocyte Esterase (Negative) Urine WBC (Auto) (0.0-6.0) /HPF Urine RBC (Auto) (0.0-6.0) /HPF Salicylates (2.8-20.0) mg/dL Urine Opiates Screen Urine Methadone Screen Acetaminophen (10.0-30.0) ug/mL Ur Barbiturates Screen Ur Phencyclidine Scrn Ur Amphetamines Screen U Benzodiazepines Scrn Urine Cocaine Screen U Marijuana (THC) Screen Drugs of Abuse Note Plasma/Serum Alcohol (0-0.07) % 03/04/20 03/04/20 Range/Units Unknown Unknown WBC (4.5-11.0) K/mm3 RBC (3.65-5.03) M/mm3 Hgb (10.1-14.3) gm/dl Hct (30.3-42.9) % MCV (79-97) fl MCH (28-32) pg MCHC (30-34) % RDW (13.2-15.2) % Plt Count (140-440) K/mm3 Lymph % (Auto) (13.4-35.0) % [place] % (Auto) (0.0-7.3) % Eos % (Auto) (0.0-4.3) % Baso % (Auto) (0.0-1.8) % Lymph # (Auto) (1.2-5.4) K/mm3 [place] # (Auto) (0.0-0.8) K/mm3 Eos # (Auto) (0.0-0.4) K/mm3 Baso # (Auto) (0.0-0.1) K/mm3 Seg Neutrophils % (40.0-70.0) % Seg Neutrophils # (1.8-7.7) K/mm3 D-Dimer (0-234) ng/mlDDU Sodium (137-145) mmol/L Potassium (3.6-5.0) mmol/L Chloride (98-107) mmol/L Carbon Dioxide (22-30) mmol/L Anion Gap mmol/L BUN (7-17) mg/dL Creatinine (0.6-1.2) mg/dL Estimated GFR ml/min BUN/Creatinine Ratio % Glucose (65-100) mg/dL Calcium (8.4-10.2) mg/dL Magnesium (1.7-2.3) mg/dL Total Bilirubin (0.1-1.2) mg/dL AST (5-40) units/L ALT (7-56) units/L Alkaline Phosphatase (35-129) units/L Total Creatine Kinase (30-135) units/L Troponin T (0.00-0.029) ng/mL Total Protein (6.3-8.2) g/dL Albumin (3.9-5) g/dL Albumin/Globulin Ratio % Lipase (13-60) units/L HCG, Qual (Negative) Urine Color Straw (Yellow) Urine Turbidity Clear (Clear) Urine pH 6.0 (5.0-7.0) Ur Specific [place] 1.012 (1.003-1.030) Urine Protein <15 mg/dl (Negative) mg/dL Urine Glucose (UA) Neg (Negative) mg/dL Urine Ketones Neg (Negative) mg/dL Urine Blood Neg (Negative) Urine Nitrite Neg (Negative) Urine Bilirubin Neg (Negative) Urine Urobilinogen < 2.0 (<2.0) mg/dL Ur Leukocyte Esterase Neg (Negative) Urine WBC (Auto) < 1.0 (0.0-6.0) /HPF Urine RBC (Auto) 1.0 (0.0-6.0) /HPF Salicylates (2.8-20.0) mg/dL Urine Opiates Screen Negative Urine Methadone Screen Negative Acetaminophen (10.0-30.0) ug/mL Ur Barbiturates Screen Negative Ur Phencyclidine Scrn Negative Ur Amphetamines Screen Negative U Benzodiazepines Scrn Negative Urine Cocaine Screen Negative U Marijuana (THC) Screen Presumptive positive Drugs of Abuse Note Disclamer Plasma/Serum Alcohol (0-0.07) % Vital Signs 03/04/20 03/04/20 09:56 19:20 Temperature 97.6 F Pulse Rate 90 90 Respiratory 18 16 Rate Blood Pressure 119/68 Blood Pressure 117/81 [Left] O2 Sat by Pulse 98 99 Oximetry - EKG Data EKG shows normal: sinus rhythm Rate: normal - EKG Data 03/04/20 21:16 LAD low voltage non specific T wave inversion V1, V2 no STEMI - Radiology Data Radiology results: report reviewed CTA CHEST WITH IV CONTRAST INDICATION / CLINICAL INFORMATION: CP, SOB, elevated D-dimer, recent surgery 3 months. TECHNIQUE: Axial CT images were obtained through the chest after injection of IV contrast. 3 plane MIP and/or 3D reconstructions were produced. All CT scans at this location are performed using CT dose reduction for ALARA by means of automated exposure control. COMPARISON: None available. FINDINGS: PULMONARY ARTERIES: No pulmonary emboli. THORACIC AORTA: No significant abnormality. HEART: No significant abnormality. CORONARY ARTERIES: No significant calcification. PLEURA: No pleural effusion. No pneumothorax. LYMPH NODES: No significant adenopathy. LUNGS: No acute air space or interstitial disease. ADDITIONAL FINDINGS: None. UPPER ABDOMEN: No acute findings. SKELETAL STRUCTURES: No significant osseous abnormality. IMPRESSION: 1. No CT evidence for pulmonary embolism. 2. No acute findings. Signer Name: Tristian Pantoja MD Signed: 03/04/2020 5:59 PM Workstation Name: [id number] Transcribed By: Dictated By: Tristian Pantoja MD Electronically Authenticated By: Tristian Pantoja MD Signed Date/Time: 03/04/201758 DD/ 55 TD/TT: Ordering Physician: COLIN MCKEON Date of Service: 03/04/20 Procedure(s): VL venous duplex LE BILAT Accession Number(s): [id number] cc: COLIN MCKEON DUPLEX DOPPLER LOWER EXTREMITY VEINS, BILATERAL INDICATION: pain BLE, recent surgery 3 months ago. TECHNIQUE: Duplex doppler imaging was performed through the veins of both lower extremities using venous compression and other maneuvers. COMPARISON: No relevant prior imaging study available. FINDINGS: Right Common femoral vein: Negative. Right Superficial femoral vein: Negative. Right Popliteal vein: Negative. Right Calf veins: Negative. Left Common femoral vein: Negative. Left Superficial femoral vein: Negative. Left Popliteal vein: Negative. Left Calf veins: Negative. Additional findings: None. IMPRESSION: No sonographic evidence for DVT in either lower extremity. Signer Name: Kiel Jones Jr, MD Signed: 03/04/2020 1:29 PM Workstation Name: [id number] Transcribed By: KENDRICK Dictated By: KIEL JONES JR, MD Electronically Authenticated By: KIEL JONES JR, MD Signed Date/Time: 03/04/201328 DD/ 28 TD/TT: Ordering Physician: ZACH RALPH Date of Service: 03/04/20 Procedure(s): XR chest routine 2V Accession Number(s): [id number] cc: ZACH RALPH Fluoro Time In Minutes: CHEST 2 VIEWS INDICATION / CLINICAL INFORMATION: chest pain. COMPARISON: 03/22/2012 FINDINGS: SUPPORT DEVICES: None. HEART / MEDIASTINUM: No significant abnormality. LUNGS / PLEURA: No significant pulmonary or pleural abnormality. No pneumothorax. ADDITIONAL FINDINGS: No significant additional findings. IMPRESSION: 1. No acute findings. Signer Name: Jarred Arciniega MD Signed: 03/04/2020 11:18 AM Workstation Name: [id number] Transcribed By: Dictated By: JARRED ARCINIEGA Electronically Authenticated By: JARRED ARCINIEGA Signed Date/Time: 03/04/201117 DD/ 16 TD/TT: - Medical Decision Making Patient is a 34-year-old female presents emergency room with complaints of pleuritic chest pain that began yesterday. She has associated palpitations, shortness of breath, cramping/tingling in her legs. She denies any leg swell ing, vomiting, cough, hemoptysis, fever, nausea. She states that yesterday she went to a [employer] store and told them that she was having some difficulty sleeping and she took a gummy candy and then began experiencing palpitations. She states that she went to another hospital yesterday but does not know the name of it and had an EKG performed which she reports was normal and then she was discharged home per pt. She states the palpitations have been improving but she is now experiencing pleuritic chest pain and shortness of breath. Patient states that she had a [place] butt lift cosmetic surgery performed in [place] 3 months ago. She denies any known sick contacts. No past medical history. No allergies medications. She endorses occasional alcohol use. She denies any other drug use. She denies any tobacco use. no hormone use, no hx of cancer. Vitals are normal. No abnormality on physical examination as documented in chart. Labs significant for elevated D-dimer, mild hypokalemia repleted with kdur. Troponin is negative x2. EKG with left axis deviation, low voltage, nonspecific T wave inversion, no STEMI. Chest x-ray with no acute process. Doppler lower extremity shows no DVT. CT angio chest with no acute process. UDS is positive for THC. Patient given medications while in the emergency department and symptoms significantly improved and she is feeling much better ready to go home. Discussed all results with patient and answered questions. Patient given prescription for naproxen. Advised patient Please take medication as prescribed as needed. Increase your water intake. Please do not use marijuana/CBD oil. Avoid caffeine use such as coffee, tea, soda, energy drinks. Follow-up with a primary care doctor. 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 Return to emergency room for any new or worsening symptoms. - Differential Diagnosis PE, PNA, pericarditis, pleural effusion, drug use, arrhythmia, anemia Critical care attestation.: If time is entered above; I have spent that time in minutes in the direct care of this critically ill patient, excluding procedure time. ED Disposition Clinical Impression: SOB (shortness of breath), Leg cramping, Palpitations, Marijuana use Chest pain Qualifiers: Chest pain type: unspecified Qualified Code(s): R07.9 - Chest pain, unspecified Disposition: TO HOME OR SELFCARE Is pt being admited?: No Does the pt Need Aspirin: No Condition: Stable Instructions: What You Need to Know About Marijuana Use, Palpitations, Easy -to-Read, Chest Pain (ED) Additional Instructions: Please take medication as prescribed as needed. Increase your water intake. Please do not use marijuana/CBD oil. Avoid caffeine use such as coffee, tea, soda, energy drinks. Follow-up with a primary care doctor. 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 Return to emergency room for any new or worsening symptoms. Prescriptions: Naproxen [EC-Naprosyn] 500 mg PO BID PRN #14 tablet.dr BALDWIN Reason: pain Referrals: CORTEZ RODRIGUEZ MD [Primary Care Provider] - 2-3 Days MAURO SALAZAR MD [Staff Physician] - 2-3 Days [facility] [Provider Group] - 2-3 Days [facility] [Provider Group] - 2-3 Days Time of Disposition: 18:17 Print Language: SLOVENIAN
[2020-03-04 11:20] LABS: Bilirubin,Urine NEG (Negative); Blood,Urine NEG (Negative); Color,Urine Straw (Yellow); Protein,Urine <15 mg/dL mg/dL (Negative); Urobilinogen,Urine < 2.0 mg/dL (<2.0); WBC,Urine < 1.0 /HPF (0.0-6.0)
--- NOTE | 2020-03-04 11:23 | XRay Report ---
CHEST 2 VIEWS INDICATION / CLINICAL INFORMATION: chest pain. COMPARISON: 03/22/2012 FINDINGS: SUPPORT DEVICES: None. HEART / MEDIASTINUM: No significant abnormality. LUNGS / PLEURA: No significant pulmonary or pleural abnormality. No pneumothorax. ADDITIONAL FINDINGS: No significant additional findings. IMPRESSION: 1. No acute findings. Signer Name: Jarred Domingo MD Signed: 03/04/2020 11:18 AM Workstation Name: [id number]
[2020-03-04 11:29] LABS: Basophils % (Auto) 0.6 % (0.0-1.8); Eosinophils # (Auto) 0.1 K/mm3 (0.0-0.4); Eosinophils % (Auto) 1.9 % (0.0-4.3); Hematocrit 38.2 % (30.3-42.9); Hemoglobin 12.9 gm/dl (10.1-14.3); Lymphocytes # (Auto) 1.5 K/mm3 (1.2-5.4); Lymphocytes % (Auto) 34.9 % (13.4-35.0); Mean Corpuscular HGB Conc 34 % (30-34); Mean Corpuscular Volume 86 fl (79-97); Monocytes # (Auto) 0.4 K/mm3 (0.0-0.8); Monocytes % (Auto) 10.3 % (0.0-7.3); Platelet Count 254 K/mm3 (140-440); Red Blood Count 4.43 M/mm3 (3.65-5.03); Red Cell Distribution Width 14.2 % (13.2-15.2)
[2020-03-04 11:53] LABS: Alanine Aminotransferase 10 units/L (7-56); Albumin 4.1 g/dL (3.9-5); Blood Urea Nitrogen 13 mg/dL (7-17); Calcium 9.2 mg/dL (8.4-10.2); Hemolysis Index 73
[2020-03-04 12:00] LABS: Amphetamine Screen,Urine Negative; Benzodiazepines Screen,Urine Negative; Cocaine Screen,Urine Negative; Methadone Screen,Urine Negative; Opiate Screen,Urine Negative
[2020-03-04 12:14] LABS: BUN/Creatinine Ratio 22
[2020-03-04] MEDS ORDERED: POTASSIUM CHLORIDE ER 20 MEQ TAB PO ONE (12:27)
[2020-03-04 13:03] LABS: Cannabinoid Screen,Urine PRESUMPTIVE POSITIVE
--- NOTE | 2020-03-04 13:34 | Vascular Lab Report ---
DUPLEX DOPPLER LOWER EXTREMITY VEINS, BILATERAL INDICATION: pain BLE, recent surgery 3 months ago. TECHNIQUE: Duplex doppler imaging was performed through the veins of both lower extremities using ve nous compression and other maneuvers. COMPARISON: No relevant prior imaging study available. FINDINGS: Right Common femoral vein: Negative. Right Superficial femoral vein: Negative. Right Popliteal vein: Negative. Right Calf veins: Negative. Left Common femoral vein: Negative. Left Superficial femoral vein: Negative. Left Popliteal vein: Negative. Left Calf veins: Negative. Additional findings: None. IMPRESSION: No sonographic evidence for DVT in either lower extremity. Signer Name: Kiel Jones Jr, MD Signed: 03/04/2020 1:29 PM Workstation Name: [id number]
[2020-03-04] MEDS ORDERED: CYCLOBENZAPRINE 10 MG TAB PO ONE (14:20)
[2020-03-04] MEDS ORDERED: KETOROLAC 30 MG/1 ML INJ IV ONE (14:20)
--- NOTE | 2020-03-04 18:03 | Cat Scan Report ---
CTA CHEST WITH IV CONTRAST INDICATION / CLINICAL INFORMATION: CP, SOB, elevated D-dimer, recent surgery 3 months. TECHNIQUE: Axial CT images were obtained through the chest after injection of IV contrast. 3 plane MIP and/or 3D reconstructions were produced. All CT scans at this location are performed using CT dose reduction f or ALARA by means of automated exposure control. COMPARISON: None available. FINDINGS: PULMONARY ARTERIES: No pulmonary emboli. THORACIC AORTA: No significant abnormality. HEART: No significant abnormality. CORONARY ARTERIES: No significant calcification. PLEURA: No pleural effusion. No pneumothorax. LYMPH NODES: No significant adenopathy. LUNGS: No acute air space or interstitial disease. ADDITIONAL FINDINGS: None. UPPER ABDOMEN: No acute findings. SKELETAL STRUCTURES: No significant osseous abnormality. IMPRESSION: 1. No CT evidence for pulmonary embolism. 2. No acute findings. Signer Name: Tristian Pantoja MD Signed: 03/04/2020 5:59 PM Workstation Name: [id number]
[2020-03-04 19:21] VITALS: BP 117/81
== END 2020-03-04 19:24 | disposition home or self-care (01) ==
LOC: ED 09:55
DX: R06.02 Shortness of breath (principal); R07.89 Other chest pain; R00.2 Palpitations; F12.90 Cannabis use, unspecified, uncomplicated; G43.909 Migraine, unspecified, not intractable, without status migrainosus; Z98.890 Other specified postprocedural states; Z79.899 Other long term (current) drug therapy
CPT/HCPCS: 36415; 71046; 71275; 80053; 80307; 81001; 82550; 83690; 83735; 84484; 84703; 85025; 85379; 93005; 93970; 96361; 96374; 99284; J1885; J7030; Q9967; 80320; G0480

== ENCOUNTER 2021-04-20 12:33 | Emergency (ER) | payer SELFPAY ==
[2021-04-20] MEDS ORDERED: KETOROLAC 10 MG TAB PO ONE (14:32)
[2021-04-20] MEDS ORDERED: predniSONE 20 MG TAB PO ONE (14:32)
--- NOTE | 2021-04-20 14:55 | Emergency Department Report ---
ED General Adult HPI - General Chief complaint: Pain General Stated complaint: LT BREAST PAIN Time Seen by Provider: 04/20/21 14:22 Source: patient Mode of arrival: Ambulatory Limitations: No Limitations - History of Present Illness Initial comments: 35-year-old black female with no past medical history presents to the emergency department with 3-day history of left breast pain. She states that breast is painful to touch and when she moves her arm around, it feels like something is pulling on the inside of her breasts. She denies fever, drainage, chest pain, shortness of breath, and hemoptysis. She states that she took Tylenol for the pain and she did have some improvement but pain is now back. MD Complaint: Left breast pain -: Gradual, days(s) (3) Location: left (Breast) Radiation: non-radiation Severity scale (0 -10): 6 Quality: aching, other (Pulling) Consistency: intermittent Worsens with: movement Associated Symptoms: denies: chest pain, cough, diaphoresis, fever/chills, headaches, loss of appetite, malaise, nausea/vomiting, rash, shortness of breath, syncope, weakness Treatments Prior to Arrival: other (Tylenol) - Related Data Previous Rx's Medication Instructions Recorded Last Taken Type Famotidine [Pepcid] 20 mg PO BID #30 tablet 08/09/15 Unknown Rx HYDROcodone/APAP 7.5-325 [[place] 1 each PO Q8HR PRN #15 tablet 08/09/15 Unknown Rx 7.5/325] Ibuprofen [Motrin 600 MG tab] 600 mg PO Q8H PRN #20 tablet 08/21/19 Unknown Rx Nitrofurantoin [place]/M-Cryst 100 mg PO Q12HR #14 capsule 08/21/19 Unknown Rx [Macrobid CAP] Ondansetron [Zofran Odt] 4 mg PO Q8HR #10 tab.rapdis 08/21/19 Unknown Rx HYDROcodone/APAP 5-325 [[place] 1 - 2 each PO Q6HR PRN #10 tablet 08/24/19 Unknown Rx 5/325] Phenazopyridine [Pyridium] 200 mg PO TID #6 tab 08/24/19 Unknown Rx DOXYCYCLINE Hyclate [Vibramycin 100 mg PO Q12HR 10 Days capsule 08/28/19 Unknown Rx CAP] metroNIDAZOLE [Flagyl] 500 mg PO Q12HR 10 Days tab 08/28/19 Unknown Rx Naproxen [EC-Naprosyn] 500 mg PO BID PRN #14 tablet. 03/04/20 Unknown Rx Naproxen [Naprosyn] 500 mg PO BID #14 tab 04/20/21 Unknown Rx Allergies Allergy/AdvReac Type Severity Reaction Status Date / Time No Known Allergies Allergy Verified 08/06/14 13:18 ED Review of Systems ROS: Stated complaint: LT BREAST PAIN Other details as noted in HPI Comment: All other systems reviewed and negative Constitutional: denies: chills, diaphoresis, fever, malaise, weakness Eyes: denies: eye pain ENT: denies: ear pain Respiratory: denies: cough, shortness of breath, SOB with exertion, SOB at rest, wheezing Cardiovascular: denies: chest pain, palpitations, dyspnea on exertion, edema, syncope Endocrine: no symptoms reported Gastrointestinal: denies: abdominal pain, nausea, vomiting Genitourinary: denies: urgency, dysuria Musculoskeletal: denies: back pain Skin: denies: rash, lesions Neurological: denies: headache, weakness, numbness, paresthesias Psychiatric: denies: anxiety, depression Hematological/Lymphatic: denies: easy bleeding ED Past Medical Hx - Past Medical History Hx Headaches / Migraines: Yes - Surgical History Additional Surgical History: neck surgery @ age 4. LAPROSCOPY - Social History Smoking Status: Never Smoker Substance Use Type: None - Medications Home Medications: Home Medications Medication Instructions Recorded Confirmed Last Taken Type Famotidine [Pepcid] 20 mg PO BID #30 tablet 08/09/15 08/28/19 Unknown Rx HYDROcodone/APAP 7.5-325 [[place] 1 each PO Q8HR PRN #15 tablet 08/09/15 08/28/19 Unknown Rx 7.5/325] Ibuprofen [Motrin 600 MG tab] 600 mg PO Q8H PRN #20 tablet 08/21/19 08/28/19 Unknown Rx Nitrofurantoin [place]/M-Cryst 100 mg PO Q12HR #14 capsule 08/21/19 08/28/19 Unknown Rx [Macrobid CAP] Ondansetron [Zofran Odt] 4 mg PO Q8HR #10 tab.rapdis 08/21/19 08/28/19 Unknown Rx HYDROcodone/APAP 5-325 [[place] 1 - 2 each PO Q6HR PRN #10 tablet 08/24/19 08/28/19 Unknown Rx 5/325] Phenazopyridine [Pyridium] 200 mg PO TID #6 tab 08/24/19 08/28/19 Unknown Rx DOXYCYCLINE Hyclate [Vibramycin 100 mg PO Q12HR 10 Days capsule 08/28/19 Unknown Rx CAP] metroNIDAZOLE [Flagyl] 500 mg PO Q12HR 10 Days tab 08/28/19 Unknown Rx Naproxen [EC-Naprosyn] 500 mg PO BID PRN #14 tablet.dr 03/04/20 Unknown Rx Naproxen [Naprosyn] 500 mg PO BID #14 tab 04/20/21 Unknown Rx ED Physical Exam - General Limitations: No Limitations General appearance: alert, in no apparent distress - Head Head exam: Present: atraumatic, normocephalic - Eye Eye exam: Present: normal appearance. Absent: conjunctival injection - Neck Neck exam: Present: normal inspection - Respiratory Respiratory exam: Present: normal lung sounds bilaterally. Absent: respiratory distress, wheezes, rales, rhonchi, chest wall tenderness, accessory muscle use - Cardiovascular Cardiovascular Exam: Present: regular rate, normal heart sounds - GI/Abdominal GI/Abdominal exam: Present: soft, normal bowel sounds. Absent: distended, tenderness, guarding, rebound, rigid - Extremities Exam Extremities exam: Present: normal inspection. Absent: full ROM - Back Exam Back exam: Present: normal inspection. Absent: full ROM, tenderness, CVA tenderness (R), CVA tenderness (L) - Neurological Exam Neurological exam: Present: alert, oriented X3 - Psychiatric Psychiatric exam: Present: normal affect, normal mood - Skin Skin exam: Present: warm, dry, intact, normal color - Expanded Skin Exam Expanded 1 - Left breast noted to be tender when palpated. No erythema, edema, or warmth to touch noted. No drainage noted. ED Course Vital Signs 04/20/21 04/20/21 13:04 16:15 Temperature 98.5 F 98.0 F Pulse Rate 82 80 Respiratory 18 18 Rate Blood Pressure 106/56 120/78 [Right] O2 Sat by Pulse 99 99 Oximetry - Reevaluation(s) Reevaluation #1: 04/20/21 15:38 Patient states that pain has improved. ED Medical Decision Making - Radiology Data Radiology results: report reviewed, image reviewed CXR without any acute abnormalities. - Medical Decision Making 35-year-old black female with no past medical history presents to the emergency department with 3-day history of left breast pain. She states that breast is painful to touch and when she moves her arm around, it feels like something is pulling on the inside of her breasts. She denies fever, drainage, chest pain, shortness of breath, and hemoptysis. She states that she took Tylenol for the pain and she did have some improvement but pain is now back. Cxr without any acute abnormalites. Pain improved after toradol. Pain in to breast tissue itself, no pain to chest wall. Patient will be treated with 7 day coarse of NSAIDs and advised to take medications as prescribed. She was advised to follow up with house fellow for further evaluation and possible mammogram. She verbalized understanding of and agreement with plan of care. Critical care attestation.: If time is entered above; I have spent that time in minutes in the direct care of this critically ill patient, excluding procedure time. ED Disposition Clinical Impression: Breast pain, left Disposition: 01 HOME / SELF CARE / HOMELESS Is pt being admited?: No Does the pt Need Aspirin: No Condition: Stable Instructions: Breast Tenderness, Pain Without a Known Cause Additional Instructions: Take medication as prescribed. Follow-up with [facility] for further evaluation and mammogram. Prescriptions: Naproxen [Naprosyn] 500 mg PO BID #14 tab Referrals: MAURO SALAZAR MD [Primary Care Provider] - 3-5 Days
--- NOTE | 2021-04-20 15:29 | XRay Report ---
CHEST 2 VIEWS INDICATION / CLINICAL INFORMATION: chest pain. COMPARISON: 03/04/2020 FINDINGS: SUPPORT DEVICES: None. HEART / MEDIASTINUM: No significant abnormality. LUNGS / PLEURA: No significant pulmonary or pleural abnormality. No pneumothorax. ADDITIONAL FINDINGS: Piercing is noted in the midline of the anterior chest anterior to the sternum. IMPRESSION: 1. No acute findings. Signer Name: Rubén Coleman MD Signed: 04/20/2021 3:24 PM Workstation Name: [email or web address]
[2021-04-20 16:16] VITALS: BP 120/78
== END 2021-04-20 16:16 | disposition home or self-care (01) ==
LOC: ED 12:33
DX: N64.4 Mastodynia (principal); G43.909 Migraine, unspecified, not intractable, without status migrainosus; Z79.899 Other long term (current) drug therapy
CPT/HCPCS: 71046; 99283